=== PATIENT | male | born 1970 | race Hispanic/Latino ===

== ENCOUNTER 2019-10-06 04:58 | Emergency (ER) | payer SELFPAY ==
[2019-10-06 05:24] LABS: #Eosinphils 0.5 thou/uL (0.0-0.7); #Lymphocytes 1.8 thou/uL (1.20-3.40); #Monocytes 0.3 thou/uL (0.11-0.59); #Neutrophils 3.1 thou/uL (1.40-6.50); %Basophils 0.7 % (0.0-1.0); %Eosinophils 8.1 % (0.0-10.0); %Lymphocytes 31.8 % (21.0-51.0); %Monocytes 5.7 % (0.0-10.0); %Neutrophils 53.8 % (42.0-75.0); Hemoglobin 14.8 g/dL (14.0-18.0); Mean Corpuscular HGB CONC 34.3 g/dL (32.0-36.0); Mean Corpuscular Hemoglobin 32.9 pg (27.0-31.0); Mean Corpuscular Volume 95.9 fL (78.0-98.0); Mean Platelet Volume 7.3 fL (7.4-10.4); Platelet Count 244 thou/uL (130-400); RBC Distribution Width 11.9 % (11.5-14.5); White Blood Cell (WBC) Count 5.7 thou/uL (4.8-10.8)
[2019-10-06 05:45] LABS: ALT (SGPT) 31 U/L (8-55); AST (SGOT) 28 U/L (5-34); Albumin 4.5 g/dL (3.5-5.0); Alkaline Phosphatase 65 U/L (40-110); Anion Gap 12 mmol/L (10-20); BUN (Urea Nitrogen) 14 mg/dL (8.9-20.6); Bilirubin, Total 0.4 mg/dL (0.2-1.2); Calc. Creatinine Clearance 0 mL/min (70-130); Calcium 9.2 mg/dL (7.8-10.44); Carbon Dioxide 27 mmol/L (22-29); Chloride 108 mmol/L (98-107); Estimated GFR-MDRD 85; Glucose 105 mg/dL (70-105); Protein, Total 7.5 g/dL (6.0-8.3); Sodium 143 mmol/L (136-145)
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
[2019-10-06] MEDS ORDERED: Iopamidol-370 76% 500 ML 1 ML ONE (11:24)
== END 2019-10-06 06:35 ==
LOC: ERS 04:58
DX: M54.5 Low back pain (principal); R10.817 Generalized abdominal tenderness; I10 Essential (primary) hypertension; F17.220 Nicotine dependence, chewing tobacco, uncomplicated; V03.99XA Pedestrian with other conveyance injured in collision with car, pick-up truck or van, unspecified whether traffic or nontraffic accident, initial encounter
CPT/HCPCS: 70450; 71045; 74177; 80053; 85025; Q9967